=== PATIENT | male | born 1970 | race Caucasian/White ===

== ENCOUNTER 2018-05-07 09:02 | Emergency (ER) | payer OTHER ==
[2018-05-07] MEDS: IBUPROFEN 600 MG TAB PO (09:46)
== END 2018-05-07 11:02 | disposition home or self-care (01) ==
LOC: FTE 11:02
DX: M77.32 Calcaneal spur, left foot (principal); F17.210 Nicotine dependence, cigarettes, uncomplicated
CPT/HCPCS: 73610; 73630-LT; 99283-25